=== PATIENT | male | born 1960 | race Caucasian/White ===

== ENCOUNTER 2016-11-25 08:00 | Emergency (ER) | payer OTHER ==
[~2016-11-25] VITALS: Ht 193 cm; Wt 94.8 kg
[2016-11-25 10:39] VITALS: BP 125/78
== END 2016-11-25 10:38 | disposition home or self-care (01) ==
LOC: ED 08:00
DX: S30.0XXA Contusion of lower back and pelvis, initial encounter (principal); W18.30XA Fall on same level, unspecified, initial encounter; Y93.89 Activity, other specified; Y99.8 Other external cause status; Y92.89 Other specified places as the place of occurrence of the external cause
CPT/HCPCS: J1885

== ENCOUNTER 2019-04-06 18:18 | Emergency (ER) | payer OTHER ==
[~2019-04-06] VITALS: Ht 193 cm; Wt 88.1 kg
[2019-04-06 18:28] VITALS: Ht 193 cm; Wt 88.1 kg
[2019-04-06 19:23] VITALS: BP 125/73
== END 2019-04-06 19:23 | disposition home or self-care (01) ==
LOC: ED 18:18
DX: S43.402A Unspecified sprain of left shoulder joint, initial encounter (principal); M70.72 Other bursitis of hip, left hip; I10 Essential (primary) hypertension; K58.9 Irritable bowel syndrome, unspecified; W01.0XXA Fall on same level from slipping, tripping and stumbling without subsequent striking against object, initial encounter; Y93.89 Activity, other specified; Y92.89 Other specified places as the place of occurrence of the external cause; Y99.8 Other external cause status

== ENCOUNTER 2020-02-01 21:00 | Emergency (ER) | payer OTHER ==
[~2020-02-01] VITALS: Ht 193 cm; Wt 96.3 kg
[2020-02-01 21:10] VITALS: Ht 193 cm; Wt 96.3 kg
[2020-02-01 23:15] VITALS: BP 135/87
== END 2020-02-01 23:15 | disposition home or self-care (01) ==
LOC: ED 21:00
DX: S92.512A Displaced fracture of proximal phalanx of left lesser toe(s), initial encounter for closed fracture (principal); I10 Essential (primary) hypertension; W22.8XXA Striking against or struck by other objects, initial encounter; Y93.89 Activity, other specified; Y92.89 Other specified places as the place of occurrence of the external cause; Y99.8 Other external cause status
CPT/HCPCS: Q0092